=== PATIENT | male | born 1960 ===

== ENCOUNTER 2020-12-26 15:18 | Emergency (ER) | payer SELFPAY ==
--- NOTE | 2020-12-26 16:45 | Emergency Department Report ---
ED General Adult HPI - General Chief complaint: Wound/Laceration Stated complaint: LT THUMB INJURY Time Seen by Provider: 12/26/20 16:44 Source: patient Mode of arrival: Ambulatory Limitations: No Limitations - History of Present Illness Initial comments: 60-year-old male patient presents for x-ray of the right hand today. Patient states he has a laceration to his right hand that was obtained around 10 PM last night. He states he was seen at an urgent care this morning and was referred to the ED for an x-ray to rule out a fracture. He denies any numbness/tingling or weakness in his hand. He states his range of motion is limited by pain and swelling. His tetanus vaccine was updated at the urgent care per patient. Past medical history includes hypertension. - Related Data Previous Rx's Medication Instructions Recorded Last Taken Type Acetaminophen/Codeine [Tylenol 1 tab PO Q6H PRN #10 tab 12/26/20 Unknown Rx /Codeine # 3 tab] Ibuprofen [Motrin 800 MG tab] 800 mg PO Q8HR PRN #20 tablet 12/26/20 Unknown Rx cephALEXin [Keflex] 500 mg PO Q8HR 7 Days #21 cap 12/26/20 Unknown Rx Allergies Allergy/AdvReac Type Severity Reaction Status Date / Time No Known Allergies Allergy Verified 12/26/20 16:44 ED Review of Systems ROS: Stated complaint: LT THUMB INJURY Other details as noted in HPI Constitutional: denies: fever, malaise Musculoskeletal: denies: joint swelling Skin: denies: change in color Neurological: denies: numbness, paresthesias Hematological/Lymphatic: denies: easy bleeding ED Past Medical Hx - Past Medical History Previous Medical History?: No - Surgical History Past Surgical History?: No - Social History Smoking Status: Never Smoker Substance Use Type: None - Medications Home Medications: Home Medications Medication Instructions Recorded Confirmed Last Taken Type Acetaminophen/Codeine [Tylenol 1 tab PO Q6H PRN #10 tab 12/26/20 Unknown Rx /Codeine # 3 tab] Ibuprofen [Motrin 800 MG tab] 800 mg PO Q8HR PRN #20 tablet 12/26/20 Unknown Rx cephALEXin [Keflex] 500 mg PO Q8HR 7 Days #21 cap 12/26/20 Unknown Rx ED Physical Exam - General Limitations: No Limitations General appearance: alert, in no apparent distress - Head Head exam: Present: atraumatic, normocephalic - Eye Eye exam: Present: normal appearance - Respiratory Respiratory exam: Absent: respiratory distress - Cardiovascular Cardiovascular Exam: Present: regular rate - Extremities Exam Extremities exam: Present: other (Approximately 4 cm laceration noted to right thenar webspace with granulation tissue noted; minimal active bleeding noted; no obvious foreign bodies; normal perfusion and sensation of the fingers noted; flexion is mildly limited secondary to swelling; no surrounding erythema or warmth;) - Neurological Exam Neurological exam: Present: alert, oriented X3 - Psychiatric Psychiatric exam: Present: normal affect, normal mood - Skin Skin exam: Present: warm, dry, normal color. Absent: intact, rash ED Medical Decision Making - Radiology Data Radiology results: report reviewed RIGHT HAND 3 VIEW(S) INDICATION / CLINICAL INFORMATION: Laceration to right thenar webspace COMPARISON: None available. FINDINGS: BONES / JOINT(S): No acute fracture or subluxation. No significant arthritis. SOFT TISSUES: There is soft tissue edema within the first webspace. Tiny radiopaque fragments measuring approximately 1 mm are seen within this region. ADDITIONAL FINDINGS: None. - Medical Decision Making 60-year-old male patient presents for x-ray of the right hand today. Patient states he has a laceration to his right hand that was obtained around 10 PM last night. He states he was seen at an urgent care this morning and was referred to the ED for an x-ray to rule out a fracture. He denies any numbness/tingling or weakness in his hand. He states his range of motion is limited by pain and swelling. His tetanus vaccine was updated at the urgent care per patient. Past medical history includes hypertension. X-ray shows small 1 mm foreign body without fracture to bones. No signs of infection on exam. Given wound open more than 18 hours, sutures were not placed. Antibiotic ointment placed on wound and wound closed with Steri-Strips. Patient placed in splint to prevent wound reopening. Will discharge home on Keflex. Patient to follow-up with primary care in 3 days. Discussed wound care in detail and signs and symptoms of infection that should prompt immediate return to the emergency department in detail with patient who verbalizes understanding. He is well-appearing, his vitals are stable, he is stable for discharge home. Critical care attestation.: If time is entered above; I have spent that time in minutes in the direct care o f this critically ill patient, excluding procedure time. ED Disposition Clinical Impression: Laceration of right hand, Laceration with foreign body Disposition: DC- TO HOME OR SELFCARE Is pt being admited?: No Condition: Stable Instructions: Wound Care, Adult, Nonsutured Laceration Care Prescriptions: cephALEXin [Keflex] 500 mg PO Q8HR 7 Days #21 cap Ibuprofen [Motrin 800 MG tab] 800 mg PO Q8HR PRN #20 tablet PRN Reason: pain Acetaminophen/Codeine [Tylenol /Codeine # 3 tab] 1 tab PO Q6H PRN #10 tab PRN Reason: Pain , Severe (7-10) Referrals: [facility] [Provider Group] - 3-5 Days Forms: Work/School Release Form(ED) Print Language: ROMANIAN
--- NOTE | 2020-12-26 17:13 | XRay Report ---
RIGHT HAND 3 VIEW(S) INDICATION / CLINICAL INFORMATION: Laceration to right thenar webspace COMPARISON: None available. FINDINGS: BONES / JOINT(S): No acute fracture or subluxation. No significant arthritis. SOFT TISSUES: There is soft tissue edema within the first webspace. Tiny radiopaque fragments measuri ng approximately 1 mm are seen within this region. ADDITIONAL FINDINGS: None. Signer Name: Zia Neville MD Signed: 12/26/2020 5:08 PM Workstation Name: [id number]
[2020-12-26] MEDS ORDERED: oxyCODONE /ACETAMINOPHEN 5-325MG TAB PO ONE (19:38)
[2020-12-26] MEDS ORDERED: ONDANSETRON 4 MG ODT TAB PO ONE (19:41)
[2020-12-26] MEDS ORDERED: SODIUM CHLORIDE 0.9% IRR 500 ML BOTTLE IR ONE (19:41)
[2020-12-26] MEDS ORDERED: NEOMY 3.5 MG/BACIT 400 UNITS/POLY B 5000 UNITS/GM OINT PACKET TP STA (21:08)
[2020-12-26 22:03] VITALS: BP 128/76
== END 2020-12-26 22:10 | disposition home or self-care (01) ==
LOC: ED 15:18
DX: S61.411A Laceration without foreign body of right hand, initial encounter (principal); Z79.899 Other long term (current) drug therapy; X58.XXXA Exposure to other specified factors, initial encounter; Y93.89 Activity, other specified; Y92.89 Other specified places as the place of occurrence of the external cause; Y99.8 Other external cause status
CPT/HCPCS: 73130; 99283; A6250; Q0162